=== PATIENT | male | born 1930 | race Caucasian/White ===

== ENCOUNTER 2016-10-24 11:04 | Observation (INO) ==
[~2016-10-24 11:04] MED LIST: DIAZEPAM 5 MG TABLET PO ONE; SODIUM CHLORIDE 0.9% 1,000 ML IV SCH; ceFAZolin 1,000 MG VIAL IRRIG ONE; diphenhydrAMINE CAP 25 MG CAPSULE PO ONE
[2016-10-24] MEDS ORDERED: DIAZEPAM 5 MG TABLET ONE (11:56)
[2016-10-24] MEDS ORDERED: diphenhydrAMINE CAP 25 MG CAPSULE ONE (11:57)
[2016-10-24] MEDS ORDERED: ceFAZolin 1,000 MG VIAL ONE ×2 (11:57→12:04)
--- NOTE | 2016-10-24 11:57 | Event Note ---
The patient today is doing well. 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 He is very symptomatic. Again I discussed pacemaker implantation with the patient and his family. I discussed pacemaker implantation procedure with the patient and available family. I reviewed with them the indications of the procedure as well as the basis of how the procedure itself would be carried out. I also reviewed with them the possible risks which include but not necessarily limited to surgical site bruising pain swelling or pocket hematoma that may require surgical evacuation. Discussed that the pain, swelling, bruising could be significant. Also discussed the possibility of surgical site or pocket infection that may require oral or IV antibiotics or even the possibility of surgical drainage of the pocket or even removal of the pacemaker system. Also discussed the possibility of hemothorax or pneumothorax that may require chest tube and possible blood transfusion. Also discussed the possibility of myocardial perforation that may lead to pericardial tamponade and the need for pericardiocentesis and blood transfusion. They voice understanding and agree to proceed.
--- NOTE | 2016-10-24 11:59 | History and Physical Update ---
Sedation H&P Update - History and Physical H&P was reviewed, the patient examined and there: are no changes in the patients condition since last H&P was completed. - Dictation Physical: refer to scanned H&P - Physical Exam Mental Status: alert and oriented Heart: regular rate and rhythm (He is still bradycardic.) Lung: clear to auscultation Abdomen: within normal limits Vitals: within normal limits History and Physical Changes: None - Sedation Plan for Sedation: moderate Patient Consent: Procedure disscussed with patient and patinet has consented., Risks and benefits were discussed with patient,including infection,, bleeding, injury to surrounding structures, seizure, temporary nerve, Patient understands and accepts potential risks/benefits and agrees to, proceed. ASA Class: III Airway Assessment: Class III: Soft palate, base of uvula visible
[2016-10-24] MEDS ORDERED: LIDOCAINE 1% 20 ML VIAL ONE ×2 (12:02→12:23)
[2016-10-24] MEDS ORDERED: MIDAZOLAM 2 MG/2 ML VIAL ONE ×2 (12:03→12:47)
[2016-10-24] MEDS ORDERED: fentaNYL 100 MCG/2 ML VIAL ONE (12:03)
[2016-10-24] MEDS ORDERED: diphenhydrAMINE 50 MG/1 ML VIAL ONE (12:46)
[2016-10-24] MEDS ORDERED: TISSUE ADHESIVE 1 EACH APPLICATOR TOP ONE (13:01)
[2016-10-24] MEDS ORDERED: ACETAMINOPHEN 325 MG TABLET PO PRN (13:44)
--- NOTE | 2016-10-24 13:44 | Operative Note ---
Date of procedure: 10/24/16 Procedure Preformed: Dual-chamber pacemaker system implantation Surgeon / Physician: Ej Sarkar Tin Can Feeder: Cecelia Bui Post-op diagnosis: same Findings: Successful dual-chamber pacemaker system implantation. Specimens: none sent Estimated blood loss: minimal Condition: stable Anesthesia: local, conscious sedation Disposition: floor
[2016-10-24] MEDS ORDERED: FLUTICASONE 50 MCG NASAL SPRAY 16 GM BOTTLE BOTH NARES PRN (13:48)
[2016-10-24] MEDS ORDERED: ZALEPLON 5 MG CAPSULE PO PRN (13:49)
[2016-10-24] MEDS ORDERED: ALUMINUM/MAGNES/SIMETH MAX STR 30 ML UDCUP PO PRN (13:49)
--- NOTE | 2016-10-24 13:58 | Cardiac Pacemaker ---
- Preoperative diagnosis Date of Procedure:: 10/24/16 Preoperative Diagnosis: second-degree atrioventricular block (With periods of 2- 1 in greater block with symptomatic bradycardia) Pre-op Diagnosis: Mobitz type II second-degree AV block with 2-1 and greater AV block with symptomatic bradycardia. Post-op diagnosis: same Procedure: History: 86-year-old man with Mobitz type II second-degree AV block with 2-1 and greater AV block with symptomatic bradycardia. Pre-Op diagnosis: Mobitz type II second-degree AV block with 2-1 and greater AV block is that is symptomatic. Postop diagnosis: Same Procedures: 1. Left subclavian venogram. 2. Fluoroscopic positioning of right atrial and right ventricular leads. 3. Threshold testing of right atrial and right ventricular leads. 4. Surgical implantation dual-chamber pacemaker left chest. Contrast: Visipaque 10 ml. Medications: Preoperative Benadryl and Valium given orally. Lidocaine 1% SQ 10 ml; Versed 3 mgms total IVP; fentanyl 100 mcgs total IVP, Ancef 1 gm IVPB, Ancef flush. Estimated blood loss: minimal Sponge count: Correct Pacemaker equipment: 1. Pacemaker generator: [employer] Advisa MRI , model# A2DR01 , serial# [id number] . 2. Atrial lead: Medtronic model# 5076-52 , serial# [id number] . This is a bipolar active fixation lead. Sensed P-wave is 2.1 mv. At a pulse width of 0.5 ms the threshold is 1.1 volts, current 2.1 mA, resistance 744 ohms, slew rate 0.6 . 3. Ventricular lead: Medtronic model# 5076-58 , serial# [id number] . This is a bipolar active fixation lead. Sensed R-wave is 4.9 mv. At a pulse width of 0.5 ms the threshold is 0.7 volts, current 2.1 mA, resistance 686 ohms, slew rate 2.3 . Discription of procedure: After informed consent the patient was given preoperative medication. They were then brought to the catheterization laboratory where their upper chest was prepped and draped in the usual sterile fashion. Patient then received IV sedation. Fluoroscopy and cinematography was used to obtain a left subclavian venogram for mapping. Local anesthesia with lidocaine below the left clavicle was obtained. Sharp dissection with scalpel was then used to cut through the skin and subcutaneous tissue to the pectoralis fascia. The [place]zen[place]ums scissors were then used to create a superior and inferior pocket with also using blunt dissection. Antibiotic sponge was placed in the pocket at this time. At this point using fluoroscopy and the subclavian venogram the subclavian vein was cannulated using needlestick and guidewires. Sheaths were then placed into the vein. Through the medial sheath the ventricular lead was advanced, through the lateral sheath the atrial lead was advanced. Sheaths were then peeled away. Under fluoroscopy the right ventricular lead was advanced into the RV outflow track and then positioned into the ventricle into a good position. Thresholds were good and they remained stable. The atrial lead was then positioned and obtained good spot with good thresholds that remained stable. The leads were then sutured in position using 2-0 Ethibond with 2 stitches on each sleeve. Antibiotic sponge was removed from the pocket and the pocket irrigated with antibiotic solution. Stylettes were completely removed from the leads and final thresholds were measured that remained stable. Pacemaker generator was then connected to the ventricular and atrial lead. Each lead was identified by its serial number and then placed into the appropriate header position. Each header set screw was tightened on the appropriate lead and then each lead was tugged on demonstrating it was well seated. Counts were correct. Pacemaker generator was then placed into the pocket and sutured in position with one stitch of 2-0 Ethibond. Pacemaker pocket was then closed using 2 layers of 3-0 Vicryl and one subreticular layer of 4-0 Vicryl. Exofin was used to seal the wound. Patient, tolerated the procedure well and there were no immediate complications. Patient was returned to their room. Implants: See above Anesthesia: local, moderate conscious sedation Surgeon / Physician: Ej Sarkar Child Protection Specialist: other (Cecelia Biu RN) Estimated blood loss: minimal Specimens: none sent Condition: stable Disposition: floor - Medications / Follow-up
--- NOTE | 2016-10-24 14:13 | Event Note ---
Patient doing well post pacemaker implantation. He is awake and alert without issues. He has no complaint of pain. His chest x-ray reveals pacemaker leads in good position without any pneumothorax or hemothorax noted. Reviewed the procedure with him and family in the results.
--- NOTE | 2016-10-24 14:16 | XRay Report ---
XR chest 1V portable Indication: Lead placement Comparison: Chest x-ray dated October 13, 2016 Technique: Single frontal view of the chest Findings: Continued cardiomegaly. Cardiac pacemaker apparatus demonstrated within the left chest without significant abnormality. Mild prominence of the interstitial markings may reflect mild interstitial pulmonary edema. Visualized osseous and surrounding soft tissue structures appear grossly unchanged. IMPRESSION: As above. PROCEDURE INTERPRETED AT [facility] DEPARTMENT OF RADIOLOGY Final Report Signed by: Dr Maicol Lopez
[2016-10-24] MEDS: clonazePAM 0.5 MG TABLET PO SCH (20:45)
[2016-10-24] MEDS: OMEGA 3 ACID ETHYL ESTERS 1 GM CAPSULE PO SCH (20:45)
[2016-10-24] MEDS ORDERED: ACETAMINOPHEN/diphenhydrAMINE 500-25 MG TABLET PO SCH (21:00)
--- NOTE | 2016-10-25 07:15 | Discharge Summary ---
<CastanoCynthia rogers E - Last Filed: 10/25/16 12:11> Hospital Course - Hospital Course Hospital Course: Mr. Randle's blood pressure was elevated this morning. After receiving his normal blood pressure medications, his BP has greatly improved. At this time, he is stable and will be discharged home. He has been given pain medication for incisional pain and will follow up with Dr. Sarkar next week. - Time spent with patient Time with patient DS: Less than 30 minutes Specialty Discharge - Follow Up or Referrals Follow up with: Ej Sarkar MD [Physician] - 11/02/16 8:00 am () Discharge Plan - Discharge Data Disposition: Disch To Home/Self Care - Discharge Medications New HYDROcodone/ACETAMIN 7.5-325 [[place] 7.5-325] 1 tablet PO Q6H PRN #20 tablet PRN Reason: Pain Moderate (4-7) Losartan [Cozaar] 50 mg PO DAILY #30 tablet Continue Omeprazole [Prilosec] 20 mg PO DAILY clonazePAM TAB [KlonoPIN] 0.25 mg PO BID Verapamil HCl [Verapamil ER Cap] 240 mg PO DAILY ACETAMIN/diphenhydrAMIN 500-25 [Tylenol PM] 1 tablet PO BEDTIME Fluticasone 50 Mcg Nasal [place] [Flonase Nasal [place]] 1 spray BOTH NARES DIRECTED PRN PRN Reason: Congestion [place]-3S/Dha/Epa/Fish Oil [Fish Oil 1,200 mg Softgel] 1 capsule PO BID Multivitamin [Multivitamins] 1 tablet PO DAILY Zolpidem Tartrate 5 mg PO BEDTIME PRN PRN Reason: Sleep - Follow Up or Referral Follow Up: Ej Sarkar MD [Physician] - 11/02/16 8:00 am () - Forms/Instructions Instructions: Pacemaker (DC) Exam - Constitutional Vitals: Period Temp Pulse Resp BP Sys/Penny Pulse Ox Last 24 Hr 98.3 F-99.2 F 65-79 16-20 134-184/65-85 92-96 DS: Provider Date of admission: 10/24/16 13:44 Primary care physician: Kofi Meyer MD Attending physician on admission: Fabiana Kuhn Consults: 10/24/16 16:30 Consult to Pastoral Services [CONS] Routine Comment: Pastoral Screen: Request Software Licensing Executive Visit Discharging clinician: ANGELA BanegasP-BC <Ej Sarkar - Last Filed: 10/25/16 17:05> Hospital Course - Hospital Course Hospital Course: Patient was admitted through outpatient services and reevaluated. The patient has Mobitz type II second-degree AV block with 2-1 and greater conduction abnormality. The patient has symptomatic bradycardia. The patient is also been noted to have significant hypertension. Patient underwent dual-chamber pacemaker implantation on 10/24/2016. immediate post procedure he did well. Chest x-rays were stableboth post op and next AM. PM interogation with deminished ventricular threshold but stable. Diagnosis - Discharge Diagnosis (1) Mobitz type 2 second degree AV block Status: Acute (2) Bradycardia Status: Acute (3) Cardiac pacemaker in situ Status: Acute (4) Hypertension Status: Acute Discharge Plan - Discharge Data Condition at Discharge: Stable Discharge Diet: heart healthy Activity: other (For 2 weeks the patient is not to lift his left hand above his shoulder or extend out.) Hygiene: other (Do not get pacemaker site wet for 4 days after which he may refill I want to run over the shower. No soaking or direct water impact onto the wound for a total of 2 weeks.) Weight Bearing at Discharge: full weight bearing Driving: not for (2 weeks) Contact your physician if you experience:: fever over 101, Redness or swelling, Bleeding, pain uncontrolled by pain medications Wound / Dressing Care Instructions: Do not apply any kind of ointments or antibiotic ointments to the pacemaker wound or bandages unless first discussing with physicians office. Exam - Constitutional Exam: General appearance: Alert cooperative no distress. HCT: Atraumatic. Neck: Supple trachea midline. Lungs: Clear to movement rostrocaudal wheezes. Cardiovascular system: Regular rate and rhythm. No murmur. Chest wall: Pacemaker site left upper chest is stable without any postop complications or issues. Abdomen: Soft nontender. Extremities: No edema. Neurologic alert cooperative without deficits. Psychiatric: Cognitive function grossly intact. Skin: Warm and dry. Discharge Results Procedures and tests throughout hospitalization: Patient underwent dual-chamber pacemaker mentation left chest. Post procedure done well leads in good position and no postop complications. Chest x-ray immediately post procedure with no pneumothorax or other abnormalities. DS: Provider Date of admission: 10/24/2016 Attending physician on admission: Dr. Gt Sarkar Expected date of discharge: 10/25/16
--- NOTE | 2016-10-25 07:36 | EKG Report ---
Stationary ECG Study [facility] Test Date: 10/25/2016 7:36:15 AM Pat Name: MAURICE ALVARADO Department: Room: 280 Gender: M Fish Cleaner: HILDA : 1930 Requested by: Ej Reina Order Number: [id number] Reading MD: GENARO MENJIVAR Intervals [place] Rate: 64 P: 70 SD: 204 QRS: -49 QRSD: 157 T: 66 QT: 474 QTc: 483 Interpretive Statements Sinus rhythm with AV synchronous ventricular pacing Electronically Signed On 10-25-16 21:50:26 CDT by GENARO MENJIVAR [email or web address]
[2016-10-25] MEDS: OMEGA 3 ACID ETHYL ESTERS 1 GM CAPSULE PO SCH (08:43)
[2016-10-25] MEDS: clonazePAM 0.5 MG TABLET PO SCH (08:43)
--- NOTE | 2016-10-25 08:48 | XRay Report ---
XR chest 2V Indication: Lead placement Comparison: Chest x-ray dated October 24, 2016 Technique: Frontal and lateral views of the chest. Findings: Continued mild cardiomegaly. Cardiac pacemaker apparatus again noted. Chronic change of the lungs without richie pulmonary edema. Mildly improved interstitial pulmonary edema. Visualized osseous and surrounding soft tissue structures appear grossly unchanged. IMPRESSION: As above. PROCEDURE INTERPRETED AT [facility] DEPARTMENT OF RADIOLOGY Final Report Signed by: Dr Maicol Lopez
[2016-10-25] MEDS ORDERED: VERAPAMIL SR 240 MG TABLET PO SCH (09:00)
[2016-10-25] MEDS ORDERED: PANTOPRAZOLE 40 MG TABLET PO SCH (09:00)
[2016-10-25] MEDS ORDERED: MULTIVITAMIN (CENTRUM) TABLET PO SCH (09:00)
[2016-10-25] MEDS ORDERED: LOSARTAN 50 MG TABLET PO SCH (09:00)
[2016-10-25 12:15] VITALS: BP 150/78
== END 2016-10-25 13:54 | disposition home or self-care (01) ==
LOC: N.CL 11:04 → N.TELEN 11:04 → N.CL 11:07 → N.TELEN 16:13
PROVIDERS: ADMIT Internal Medicine Cardiovascular Disease; ATTEND Internal Medicine Cardiovascular Disease